=== PATIENT | male | born 1985 | race Hispanic/Latino ===

== ENCOUNTER 2022-02-01 18:07 | Emergency (ER) | payer OTHER, SELFPAY ==
[2022-02-01] MEDS ORDERED: BUPIVACAINE 0.5% PF 10 ML VIAL ONE (18:33)
[2022-02-01] MEDS ORDERED: TETANUS & DIPHTHERIA TOX,ADULT 0.5 ML VIAL ONE (18:34)
[2022-02-01] MEDS ORDERED: LIDOCAINE 1% W/EPI 1:100,000 MDV 50 ML VIAL ONE (18:35)
--- NOTE | 2022-02-01 19:19 | RAD REPORT ---
EXAM DESCRIPTION: RAD - Humerus Right - 02/01/2022 6:48 pm CLINICAL HISTORY: Right arm pain FINDINGS: Soft tissue laceration No fracture is seen
--- NOTE | 2022-02-01 20:01 | EDPHYS ---
Physician Documentation [facility] Name: Ciro Castellanos Age: 36 yrs Sex: Male : 1985 Arrival Date: 02/01/2022 Time: 18:08 Bed 5 Private MD: ED Physician Manuel Abrams HPI: 02/01 18:20 This 36 yrs old Male presents to ER via Wheelchair with complaints of Arm cp Injury. 18:20 The patient or guardian complains of a laceration. cp 18:20 The complaints affect the right bicep. Context: resulted from metal hook on boat. cp Onset: The symptoms/episode began/occurred just prior to arrival. Treatment prior to arrival includes: area wrapped with towel and pressure applied. Associated signs and symptoms: The patient has no apparent associated signs or symptoms. Historical: - Allergies: 18:14 No Known Allergies; iw - Home Meds: 18:14 None [Active]; iw - PMHx: 18:14 None; iw - PSHx: 18:14 None; iw - Immunization history:: Last tetanus immunization: unknown. - Social history:: Smoking status: unknown. ROS: 18:30 Skin: Positive for laceration(s), of the right bicep. cp 18:30 Constitutional: Negative for body aches, chills, fever. cp 18:30 Cardiovascular: Negative for chest pain, palpitations. 18:30 Respiratory: Negative for cough, shortness of breath, wheezing. 18:30 Abdomen/GI: Negative for abdominal pain, nausea, vomiting, and diarrhea. 18:30 MS/extremity: Negative for decreased range of motion. 18:30 Neuro: Negative for altered mental status, headache, weakness. 18:30 All other systems are negative. Exam: 18:35 Constitutional: The patient appears in no acute distress, alert, awake, non-toxic, well cp developed, well nourished. 18:35 Head/Face: Normocephalic, atraumatic. cp 18:35 Chest/axilla: Inspection: normal. 18:35 Cardiovascular: Rate: normal. 18:35 Respiratory: the patient does not display signs of respiratory distress, Respirations: normal, no use of accessory muscles, no retractions, labored breathing, is not present. 18:35 Abdomen/GI: Exam negative for discomfort, distension, guarding, Inspection: abdomen appears normal. 18:35 Back: pain, is absent, ROM is normal. 18:35 Musculoskeletal/extremity: ROM: full active range of motion, in the right arm, Pulses: noted to be 2+ in the right radial artery, the right arm Sensation intact. 18:35 Skin: injury, laceration(s), of the right bicep, that can be described as clean, no foreign body, linear, with mild bleeding. Vital Signs: 18:13 Temp 97.0(TE); iw Laceration: 19:48 Wound Repair of 8cm ( 3.1in ) subcutaneous laceration to right bicep. Linear shaped.. cp Distal neuro/vascular/tendon intact. Anesthesia: Wound infiltrated with 15 mls of Lido/Marcaine. Wound prep: Moderate cleansing by me, Wound irrigation by me. Skin closed with 1 3-0 Prolene using running sutures and sterile technique. Dressed with Bacitracin, 4x4's, Kerlix. Patient tolerated well. MDM: 18:14 Patient medically screened. cp 20:00 Data reviewed: vital signs, nurses notes, radiologic studies, plain films. cp 20:00 Test interpretation: by ED physician or midlevel provider: plain radiologic studies. cp Counseling: I had a detailed discussion with the patient and/or guardian regarding: the historical points, exam findings, and any diagnostic results supporting the discharge/admit diagnosis, radiology results, the need for outpatient follow up, a family practitioner, to return to the emergency department if symptoms worsen or persist or if there are any questions or concerns that arise at home. Response to treatment: the patient's symptoms have markedly improved after treatment, and as a result, I will discharge patient. 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 Exp: em6 10/04/2023. Lot #: [id number]. } Route: IM; Site: right deltoid; 19:05 Follow up: Response: (VIS) Vaccine information sheet provided today. Questions and/or tw5 concerns addressed. VIS edition date: Jan 03, 2021. 19: Drug: Lidocaine-Epinephrine -1%: (1:100,000) 10 ml {Note: Administered at the bedside tw5 by PA.} Volume: 20 ml; Route: Infiltration; 19:28 Drug: Marcaine (bupivacaine) (0.5 %) 10 ml {Note: Administered by PA at the bedside .} tw5 Volume: 10 ml; Route: Infiltration; Disposition: 02/02 07:08 Co-signature as Attending Physician, Manuel Abrams MD I agree with the assessment and kdr plan of care. Disposition Summary: 02/01/22 20:01 Discharge Ordered Location: Home cp Problem: new cp Symptoms: have improved cp Condition: Stable cp Diagnosis - Laceration without foreign body of right upper arm, initial encounter cp Followup: cp - With: Private Physician - When: 10 - 14 days - Reason: Staple/Suture removal Discharge Instructions: - Discharge Summary Sheet cp - Laceration Care, Adult cp Forms: - Medication Reconciliation Form cp - Thank You Letter cp - Antibiotic Education cp - Prescription Opioid Use cp - Work release form [id number] Prescriptions: - Doxycycline Monohydrate 100 mg Oral Tablet - take 1 tablet by ORAL route every 12 hours for 10 days; 20 tablet; Refills: 0, cp Product Selection Permitted Signatures: Dispatcher [employer] Manuel Engel MD MD [facility] Bibi Patel RN RN Ean Champagne PA PA cp Wood, Tiffany tw5 Danielle Villegas RN RN em6 Corrections: (The following items were deleted from the chart) 01:19 Constitutional: Negative for body aches, chills, fever, poor PO intake, cp cp 01:19 Neck: Negative for pain with movement, pain at rest, stiffness, cp cp 01:19 Cardiovascular: Negative for chest pain, palpitations, cp cp 01:19 Respiratory: Negative for cough, shortness of breath, wheezing, cp cp 24 01:19 Abdomen/GI: Negative for abdominal pain, nausea, vomiting, and diarrhea, cp cp 01:19 Back: Negative for pain at rest, pain with movement, cp cp : MS/extremity: Positive for pain, tenderness, of the right elbow and right cp shoulder, Negative for decreased range of motion, deformity, paresthesias, cp : Neuro: Negative for altered mental status, dizziness, headache, numbness, cp weakness, cp : Skin: Negative for cellulitis, rash, cp cp : All other systems are negative, cp cp : Constitutional: The patient appears in no acute distress, alert, awake, cp non-toxic, well developed, well nourished, cp : Head/Face: Normocephalic, atraumatic. cp cp : Neck: ROM/movement: is normal, is supple, without pain, no range of motions cp limitations, cp : Chest/axilla: Inspection: normal, Palpation: is normal, no crepitus, no cp tenderness, cp : Cardiovascular: Rate: normal, Rhythm: regular, cp cp : Respiratory: the patient does not display signs of respiratory distress, cp Respirations: normal, no use of accessory muscles, no retractions, labored breathing, is not present, Breath sounds: are clear throughout, no decreased breath sounds, no stridor, no wheezing, cp : Abdomen/GI: Exam negative for discomfort, distension, guarding, Inspection: cp abdomen appears normal, cp : Musculoskeletal/extremity: Extremities: grossly normal except: noted in the right cp elbow: pain, tenderness, noted in the right shoulder: pain, tenderness, ROM: full active range of motion, in the right shoulder and right elbow and right wrist, Pulses: noted to be 2+ in the right radial artery, the right arm Sensation intact. cp : 19:07 Skin: Positive for laceration(s), of the right bicep, cp cp
--- NOTE | 2022-02-01 20:01 | ER ---
Nurse's Notes [facility] Name: Ciro Castellanos Age: 36 yrs Sex: Male : 1985 Arrival Date: 02/01/2022 Time: 18:08 Bed 5 Private MD: Diagnosis: Laceration without foreign body of right upper arm, initial encounter Presentation: 02/01 18:09 Chief complaint: Patient states: jumped off a boat, the metal hook that you tie the iw rope on caught his right inner arm, torn open his arm. Risk Assessment: Do you want to hurt yourself or someone else? Patient reports no desire to harm self or others. 18:09 Method Of Arrival: Wheelchair iw 18:09 Acuity: TAMARA 3 iw 18:13 Coronavirus screen: At this time, the client does not indicate any symptoms associated iw with coronavirus-19. Ebola Screen: Patient negative for fever greater than or equal to 101.5 degrees Fahrenheit, and additional compatible Ebola Virus Disease symptoms Patient denies exposure to infectious person. Patient denies travel to an Ebola-affected area in the 21 days before illness onset. No symptoms or risks identified at this time. Initial Sepsis Screen: Does the patient meet any 2 criteria? No. Patient's initial sepsis screen is negative. Does the patient have a suspected source of infection? No. Patient's initial sepsis screen is negative. Onset of symptoms was February 01, 2022. Historical: - Allergies: 18:14 No Known Allergies; iw - Home Meds: 18:14 None [Active]; iw - PMHx: 18:14 None; iw - PSHx: 18:14 None; iw - Immunization history:: Last tetanus immunization: unknown. - Social history:: Smoking status: unknown. Screenin:14 Abuse screen: Denies threats or abuse. Nutritional screening: No deficits noted. em6 Tuberculosis screening: No symptoms or risk factors identified. Fall Risk Total Edwards Fall Scale indicates No Risk (0-24 pts). Assessment: 18:14 General: Appears in no apparent distress. comfortable, Behavior is calm, cooperative. em6 Pain: Complains of pain in right tricep Pain currently is 2 out of 10 on a pain scale. Neuro: Hyatt Agitation-Sedation Scale (RASS): 0 - Alert and Calm Level of Consciousness is awake, alert, obeys commands, Oriented to person, place, time, situation. Cardiovascular: Heart tones present Capillary refill < 3 seconds Patient's skin is warm and dry. Respiratory: Airway is patent Respiratory effort is even, unlabored, Respiratory pattern is regular, symmetrical. GI: No signs and/or symptoms were reported involving the gastrointestinal system. : No signs and/or symptoms were reported regarding the genitourinary system. EENT: No signs and/or symptoms were reported regarding the EENT system. Derm: Wound noted laceration in the right biceps area. 8-10 cm deep. open laceration. Musculoskeletal: Circulation, motion, and sensation intact. Range of motion: intact in all extremities. Injury Description: Laceration sustained to right bicep is full thickness, 7.6 to 20 cm long, not bleeding. 19:28 General: Appears in no apparent distress. tw5 Vital Signs: 18:13 Temp 97.0(TE); iw ED Course: 18:08 Patient arrived in ED. am2 18:10 Triage completed. iw 18:10 Arm band placed on. em6 18:11 Ean Champagne PA is PHCP. cp 18:11 Manuel Abrams MD is Attending Physician. cp 18:14 Bed in low position. Call light in reach. Side rails up X 1. Pulse ox on. NIBP on. Warm em6 blanket given. 18:45 Te Boo RN is Primary Nurse. jd3 18:50 XRAY Humerus RIGHT In Process Unspecified. EDMS 19:05 Primary Nurse role handed off by Te Boo RN tw5 19:05 Anne Baugh is Primary Nurse. tw5 19:30 Assist provider with laceration repair on right bicep that was between 7.6 to 12.5 cm tw5 Set up tray. Performed by Ean CRISTINA Patient tolerated well. 20:13 IV discontinued, intact, bleeding controlled, No redness/swelling at site. Pressure tw5 dressing applied. 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 Exp: em6 10/04/2023. Lot #: [id number]. } Route: IM; Site: right deltoid; 19:05 Follow up: Response: (VIS) Vaccine information sheet provided today. Questions and/or tw5 concerns addressed. VIS edition date: Jan 03, 2021. 19:28 Drug: Lidocaine-Epinephrine -1%: (1:100,000) 10 ml {Note: Administered at the bedside tw5 by PA.} Volume: 20 ml; Route: Infiltration; 19:28 Drug: Marcaine (bupivacaine) (0.5 %) 10 ml {Note: Administered by PA at the bedside .} tw5 Volume: 10 ml; Route: Infiltration; Medication: 18:58 Vaccine Information Statement (VIS) provided today. Questions and/or concerns em6 addressed. VIS edition date: January 03, 2021. Outcome: 20:01 Discharge ordered by . kimberlyn 20:13 Discharged to home ambulatory. tw5 20:13 Condition: stable 20:13 Discharge instructions given to patient, Instructed on discharge instructions, follow up and referral plans. wound care, Demonstrated understanding of instructions, follow-up care, medications, Prescriptions given X 1. 20:14 Patient left the ED. tw5 Signatures: Dispatcher [employer] EDBibi Iyer RN RN iw Ean Champagne PA PA cp Moreno, Amanda am2 Te Boo RN RN Anne Daniels tw5 Danielle Villegas RN RN em6
[2022-02-01 20:52] VITALS: TEMP 97
== END 2022-02-01 20:14 | disposition home or self-care (01) ==
LOC: ER 18:07
PROC: 0JQD0ZZ Repair Right Upper Arm Subcutaneous Tissue and Fascia, Open Approach (ICD-10-PCS; principal; 2022-02-01)
DX: S41.111A Laceration without foreign body of right upper arm, initial encounter (principal); Z23 Encounter for immunization
CPT/HCPCS: 90471; 90714; 99284